=== PATIENT | female | born 1970 | race Caucasian/White ===

== ENCOUNTER 2022-05-17 14:00 | Outpatient (RCR) | payer MEDICARE | END 2022-06-12 | disposition home or self-care (01) | LOC: PT | DX: M79.672 Pain in left foot (principal) ==

== ENCOUNTER → 2023-08-24 | Outpatient (CLI) | payer MEDICARE | LOC: MAMMO 08-10 12:15 | DX: N63.20 Unspecified lump in the left breast, unspecified quadrant (principal) ==

== ENCOUNTER 2023-11-05 11:26 | Emergency (ER) | payer MEDICARE ==
[~2023-11-05] VITALS: Ht 167.6 cm; Wt 120.8 kg
[2023-11-05] MEDS ORDERED: ESCITALOPRAM10 MG PO (12:04)
[2023-11-05] MEDS ORDERED: LOSARTAN POTASS1 TA2 PO (12:04)
[2023-11-05] MEDS ORDERED: METOPROLOL SUCC25 M1 PO (12:05)
[2023-11-05] MEDS ORDERED: PROAIR HFA0.09 MG/AC IH (13:19)
[2023-11-05] MEDS ORDERED: PROMETHAZINE-D473 M1 PO (13:19)
[2023-11-05] MEDS ORDERED: ALBUTEROL2.5 MG/3 M IH (13:19)
[2023-11-05 13:36] VITALS: BP 148/75
== END 2023-11-05 13:38 | disposition home or self-care (01) ==
LOC: ED 11:26
DX: J98.01 Acute bronchospasm (principal)